=== PATIENT | male | born 1930 | race Caucasian/White ===

== ENCOUNTER 2017-04-29 10:41 | Emergency (ER) | payer MEDICARE ==
--- NOTE | 2017-04-29 11:31 | UC ---
HPI Wound/Suture Re-check - HPI Summary HPI Summary: here for suture [id number] pacemaker placed on the 04/12/17 sutures are itchy no drainage , using zinc cream n it to keep it moist no other complaints - History Of Current Complaint Stated Complaint: SUTURE REMOVAL S/P PACEMAKER Time Seen by Provider: 04/29/17 11:28 Hx Obtained From: Patient - Allergies/Home Medications Allergies/Adverse Reactions: Allergies Allergy/AdvReac Type Severity Reaction Status Date / Time No Known Allergies Allergy Verified 04/29/17 11:25 Home Medications: Home Medications Unobtainable [Unobtainable] 04/29/17 [History Confirmed 04/29/17] PMH/Surg Hx/FS Hx/Imm Hx Previously Healthy: No - recent pacemaker Cardiovascular History: Cardiac Disease, Hypertension, Pacemaker/ICD - Surgical History Surgical History: Yes - Family History Known Family History: Negative: Cardiac Disease, Hypertension, Diabetes - Social History Occupation: Retired Lives: With Family Smoking Status (MU): Never Smoked Tobacco Review of Systems Constitutional: Negative Skin: Other - sutures Eyes: Negative ENT: Negative Respiratory: Negative Cardiovascular: Negative Gastrointestinal: Negative Genitourinary: Negative Motor: Negative Neurovascular: Negative Musculoskeletal: Negative Neurological: Negative Psychological: Negative All Other Systems Reviewed And Are Negative: Yes Physical Exam Triage Information Reviewed: Yes Appearance: No Pain Distress, Well-Nourished, Thin Vital Signs Reviewed: Yes Eyes: Positive: Conjunctiva Clear Respiratory: Positive: Lungs clear, Normal breath sounds, No respiratory distress, No accessory muscle use Cardiovascular: Positive: RRR, No Murmur, Pulses Normal, Brisk Capillary Refill Abdomen Description: Positive: Nontender, Soft Bowel Sounds: Positive: Present Musculoskeletal: Positive: No Edema Neurological: Positive: Alert Psychological Exam: Normal Skin: Positive: Other - left side of chest 4 sutures over pacemaker insertion site well approximated no edema or drainage Procedures - Procedure Summary Procedure Summary: 4 sutures removed without difficulty 4 steristrips placed over surgical site Course/Dx - Differential Dx - Laceration/Wound Provider Diagnoses: suture removal Discharge - Discharge Plan Condition: Stable Disposition: HOME Patient Education Materials: Steristrips (ED) Referrals: Santiago Gabriel MD [Medical Doctor] - Additional Instructions: keep steristrips in place until they fall off keep wound clean and dry Please review your discharge instructions. If your symptoms do not improve please call your primary care provider or return to urgent care.
[2017-04-29 11:34] VITALS: BP 137/73
== END 2017-04-29 12:12 | disposition home or self-care (01) ==
LOC: UCCORT 10:41
DX: Z09 Encounter for follow-up examination after completed treatment for conditions other than malignant neoplasm (principal); Z95.0 Presence of cardiac pacemaker; I10 Essential (primary) hypertension
CPT/HCPCS: 99211; G0463